=== PATIENT | female | born 1950 | race American Indian/Alaskan Native ===

== ENCOUNTER 2018-05-13 13:02 | Emergency (ER) | payer MEDICARE, MEDICAID ==
[~2018-05-13] VITALS: Ht 152.4 cm; Wt 109.1 kg
[~2018-05-13 13:02] MED LIST: ASPI-1265 PO; ATOR10TA87 PO; CLOP75TA35 PO; CYCL-394 PO; LANTUS SQ; LISI-222 PO; METO-539 PO; PANT40TA39 PO; PIOG15TA8 PO
[2018-05-13 13:12] VITALS: BP 163/68
--- NOTE | 2018-05-13 13:20 | NUR ---
PER DR HOLDEN, PT DOES NOT MEET CRITERIA FOR LEVEL 2 TRUMA.
--- NOTE | 2018-05-13 15:57 | NUR ---
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
== END 2018-05-13 15:59 | disposition home or self-care (01) ==
LOC: ER 13:03
DX: S82.832A Other fracture of upper and lower end of left fibula, initial encounter for closed fracture (principal); S93.402A Sprain of unspecified ligament of left ankle, initial encounter; S90.812A Abrasion, left foot, initial encounter; E11.9 Type 2 diabetes mellitus without complications; Z98.51 Tubal ligation status; Z98.890 Other specified postprocedural states; Z79.82 Long term (current) use of aspirin; Z79.4 Long term (current) use of insulin; Z79.899 Other long term (current) drug therapy; W18.39XA Other fall on same level, initial encounter; Y93.E9 Activity, other interior property and clothing maintenance; Y92.89 Other specified places as the place of occurrence of the external cause; Y99.8 Other external cause status
CPT/HCPCS: 29505; 73590; 73610; 73630; 99284

== ENCOUNTER 2021-12-28 05:56 | Day surgery (SDC) | payer MEDICARE, MEDICAID ==
[2021-12-27 12:26] LABS: BASOPHILS # (AUTO) 0.1 X10'3 (0-0.2); BASOPHILS % (AUTO) 0.6 % (0-1); EOSINOPHILS # (AUTO) 0.4 X10'3 (0-0.9); EOSINOPHILS % (AUTO) 3.3 % (0-6); HEMATOCRIT 38.8 % (35.0-45.0); LYMPHOCYTES # (AUTO) 3.1 X10'3 (1.1-4.8); LYMPHOCYTES % (AUTO) 29.2 % (21-51); MEAN CORPUSCULAR HGB CONC 33.5 g/dL (33.0-36.5); MEAN CORPUSCULAR VOLUME 89.6 FL (78-98); MEAN PLATELET VOLUME 9.3 FL (7.4-10.4); MONOCYTES # (AUTO) 0.6 X10'3 (0-0.9); NEUTROPHILS # (AUTO) 6.5 X10'3 (1.8-7.7); NEUTROPHILS % (AUTO) 60.9 % (42-75); PLATELET COUNT 225 X10'3 (140-440); RED BLOOD COUNT 4.32 X10'6 (4.20-5.60); WHITE BLOOD COUNT 10.8 X10'3 (4.5-11.0)
[2021-12-27 12:32] LABS: APTT 32 SECONDS (22-32)
[2021-12-27 12:33] LABS: ALBUMIN 3.6 G/DL (3.4-5.0); ANION GAP 8 (8-16); BLOOD UREA NITROGEN 14 MG/DL (7-18); BUN/CREATININE RATIO 17.3 (6.6-38.0); CALCIUM 9.1 MG/DL (8.5-10.1); CHLORIDE 103 MMOL/L (99-107); CREATININE 0.81 MG/DL (0.40-0.90); GLUCOSE 100 MG/DL (70-104); POTASSIUM 3.7 MMOL/L (3.5-5.1); SODIUM 140 MMOL/L (135-145); TOTAL CARBON DIOXIDE 28.6 MMOL/L (24-32); eGFR 70 ML/MIN
[2021-12-28] VITALS (9 sets, daily range): BP systolic 159–188; BP diastolic 49–81
[~2021-12-28] VITALS: Ht 154.9 cm; Wt 120.5 kg
[~2021-12-28 05:56] MED LIST changes: +CLOP75TA34 PO; -CLOP75TA35 PO
[2021-12-28] MEDS ORDERED: normal saline 1,000 ML IV SCH (06:15)
[2021-12-28] MEDS ORDERED: LORazepam 0.5 MG tablet PO PRN (06:15)
[2021-12-28] MEDS ORDERED: diphenhydrAMINE 25mg capsule PO PRN (06:15)
[2021-12-28] MEDS ORDERED: DULA0.75 SQ (06:55)
[2021-12-28] MEDS ORDERED: OMEP20CA16 PO (06:55)
[2021-12-28] MEDS ORDERED: HYDR-3972 PO (06:55)
[2021-12-28] MEDS ORDERED: INSU100I31 SUBCUT (06:55)
[2021-12-28] MEDS ORDERED: nitroGLYCERIN-Tridil 50MG/D5W 250 ML IV ONE (07:33)
[2021-12-28] MEDS ORDERED: heparin 1,000unit/ml 10ml vial 10 ML ONE (07:34)
[2021-12-28] MEDS ORDERED: iohexol 300mg/ml 100ml inj. ONE (07:34)
[2021-12-28] MEDS ORDERED: verapamil 2.5 mg/ml inj IV ONE (07:34)
[2021-12-28] MEDS ORDERED: midazolam 1 mg/ML 2ml injection ONE (07:34)
[2021-12-28] MEDS ORDERED: iohexol 350 MG/ML 50ML vial IV ONE ×2 (07:34→08:44)
[2021-12-28] MEDS ORDERED: fentaNYL/PF 50MCG/1 ML 2ML syringe ONE (07:34)
[2021-12-28] MEDS ORDERED: LIDOcaine 1% 30ml preserv. free vial ONE (07:34)
[2021-12-28] MEDS ORDERED: HYDROcodone/acetaminophen 5mg/325mg tablet PO PRN (09:20)
[2021-12-28] MEDS ORDERED: normal saline 1000ml 1,000 ML IV SCH (09:20)
[2021-12-28] MEDS ORDERED: HYDROcodone/acetaminophen 10/325mg tab PO PRN ×2 (09:20→10:25)
[2021-12-28] MEDS ORDERED: Dulaglutide (Trulicity) 0.5 ML SQ SCH (10:25)
[2021-12-28] MEDS ORDERED: lisinopril 2.5mg tablet PO ONE (10:40)
[2021-12-28] MEDS ORDERED: metoprolol succinate 25mg (24-HOUR) SR. Tablet PO ONE (10:40)
[2021-12-28] MEDS ORDERED: metoprolol succinate 25mg (24-HOUR) SR. Tablet PO SCH (20:00)
[2021-12-28] MEDS ORDERED: insulin glargine (Lantus) pen - multi-dose SQ SCH (21:00)
[2021-12-28] MEDS ORDERED: atorvastatin 10mg tablet PO SCH (21:00)
[2021-12-29] MEDS ORDERED: pioglitazone 15mg tablet PO SCH (08:00)
[2021-12-29] MEDS ORDERED: pantoprazole 40mg Tablet.DR PO SCH (08:00)
[2021-12-29] MEDS ORDERED: lisinopril 2.5mg tablet PO SCH (08:00)
[2021-12-29] MEDS ORDERED: clopidogrel 75mg tablet PO SCH (08:00)
== END 2021-12-28 13:00 | disposition home or self-care (01) ==
LOC: SSTAY O 05:56
PROVIDERS: ATTEND Internal Medicine Cardiovascular Disease
DX: R94.39 Abnormal result of other cardiovascular function study (principal); I25.10 Atherosclerotic heart disease of native coronary artery without angina pectoris; E78.5 Hyperlipidemia, unspecified; I10 Essential (primary) hypertension; G47.30 Sleep apnea, unspecified; J44.9 Chronic obstructive pulmonary disease, unspecified; G47.33 Obstructive sleep apnea (adult) (pediatric); I25.2 Old myocardial infarction; Z79.01 Long term (current) use of anticoagulants; Z79.899 Other long term (current) drug therapy; Z98.890 Other specified postprocedural states
CPT/HCPCS: 36415; 76937; 80048; 82948; 85025; 85610; 85730; 93005; 93458; 99152; 99153; A6258; C1769; C1894; J1644; J1815; J2250; J3010; J3490; J7030; Q0163; Q9967; A4620; A6402; C1725

== ENCOUNTER 2022-08-27 06:19 | Emergency (ER) | payer OTHER, MEDICAID ==
[~2022-08-27] VITALS: Ht 154.9 cm; Wt 122.7 kg
[~2022-08-27 06:19] MED LIST changes: -ASPI-1265 PO; -CYCL-394 PO; +DULA0.75 SQ; +HYDR-3972 PO; +INSU100I31 SUBCUT; -LANTUS SQ; +OMEP20CA16 PO; -PANT40TA39 PO
[2022-08-27] MEDS ORDERED: LIDOCAINE 2% (20mg/ml) w/EPINEPHRINE 1:200,000-PF 10 ML inj. SQ ONE (06:40)
[2022-08-27] MEDS ORDERED: triamcinolone acetonide 40mg/ml inj IM ONE (06:40)
[2022-08-27] MEDS ORDERED: BUPIVAcaine/PF 7.5 mg/ml (0.75%) 30ml vial IJ ONE (06:40)
[2022-08-27] MEDS ORDERED: LIDOcaine 1% W/epiNEPHrine 1:100,000 20ml vial SQ ONE (06:45)
[2022-08-27] MEDS ORDERED: BUPIVAcaine/PF 7.5mg/ml (0.75%) 10ml vial IJ ONE (06:50)
[2022-08-27 06:55] VITALS: BP 158/57
--- NOTE | 2022-08-27 07:37 | NUR ---
Pt AMB to the RR w/ min pain. C/o 4/10 pain in her R calf, no longer her buttock
== END 2022-08-27 08:02 | disposition home or self-care (01) ==
LOC: ER 06:19
DX: M70.61 Trochanteric bursitis, right hip (principal); E11.9 Type 2 diabetes mellitus without complications; Z79.899 Other long term (current) drug therapy
CPT/HCPCS: 20610; 99284